=== PATIENT | female | born 1965 | race Caucasian/White ===

== ENCOUNTER 2016-08-11 00:52 | Emergency (ER) | payer MEDICARE, MEDICAID ==
[~2016-08-11] VITALS: Ht 160 cm; Wt 61.4 kg
[2016-08-11 00:53] VITALS: BP 126/78
[2016-08-11] MEDS ORDERED: LORazepam 1MG TABLET ONE (01:21)
[2016-08-11] MEDS ORDERED: LORazepam 1MG TABLET PO ONE (01:30)
== END 2016-08-11 01:50 | disposition home or self-care (01) ==
LOC: ED 01:44
DX: F20.3 Undifferentiated schizophrenia (principal); F15.10 Other stimulant abuse, uncomplicated; F31.9 Bipolar disorder, unspecified
CPT/HCPCS: 99284

== ENCOUNTER 2016-08-12 20:13 | Emergency (ER) | payer MEDICARE, MEDICAID ==
[~2016-08-12] VITALS: Ht 160 cm; Wt 62.8 kg
[2016-08-12 20:14] VITALS: BP 146/90
== END 2016-08-12 20:44 | disposition left against medical advice (07) ==
LOC: ED 20:38
DX: F29 Unspecified psychosis not due to a substance or known physiological condition (principal); Z53.21 Procedure and treatment not carried out due to patient leaving prior to being seen by health care provider

== ENCOUNTER 2016-08-25 14:27 | Emergency (ER) | payer MEDICARE, MEDICAID ==
[~2016-08-25] VITALS: Ht 160 cm; Wt 60.6 kg
[2016-08-25 14:34] VITALS: BP 112/78
[2016-08-25] MEDS ORDERED: OLANZAPINE 10 MG TABLET PO STA (15:13)
[2016-08-25 15:42] LABS: DAU SCREEN DISCLAIMER
[2016-08-25 15:49] LABS: BLOOD UREA NITROGEN 19 mg/dL (7-18)
[2016-08-25 15:50] LABS: ACETAMINOPHEN < 2 mcg/mL (10-30)
== END 2016-08-25 17:21 | disposition left against medical advice (07) ==
LOC: ED 15:58
DX: F28 Other psychotic disorder not due to a substance or known physiological condition (principal); F22 Delusional disorders; F20.9 Schizophrenia, unspecified
CPT/HCPCS: 36415; 80048; 80307; 80329; 82040; 85025; 99284; G0480

== ENCOUNTER 2016-08-26 12:44 | Emergency (ER) | payer MEDICARE, MEDICAID | END 2016-08-26 14:55 | disposition left against medical advice (07) | LOC: ED 14:49 | DX: Z53.21 Procedure and treatment not carried out due to patient leaving prior to being seen by health care provider (principal) ==

== ENCOUNTER 2016-08-26 20:02 | Emergency (ER) | payer MEDICARE, MEDICAID ==
[~2016-08-26] VITALS: Ht 160 cm; Wt 61.6 kg
[2016-08-26 20:16] VITALS: BP 118/43
== END 2016-08-26 23:32 | disposition left against medical advice (07) ==
LOC: ED 23:26
DX: Z53.21 Procedure and treatment not carried out due to patient leaving prior to being seen by health care provider (principal)

== ENCOUNTER 2016-08-27 13:27 | Emergency (ER) | payer MEDICARE, MEDICAID ==
[~2016-08-27] VITALS: Ht 160 cm; Wt 61.0 kg
[2016-08-27 13:35] VITALS: BP 120/72
== END 2016-08-27 14:46 | disposition home or self-care (01) ==
LOC: ED 14:39
DX: F20.0 Paranoid schizophrenia (principal)
CPT/HCPCS: 99284

== ENCOUNTER 2016-08-31 20:23 | Emergency (ER) | payer MEDICARE, MEDICAID | END 2016-08-31 20:34 | disposition left against medical advice (07) | LOC: ED 20:28 ==

== ENCOUNTER 2016-09-03 16:33 | Emergency (ER) | payer MEDICARE, MEDICAID ==
[~2016-09-03] VITALS: Ht 160 cm; Wt 61.1 kg
[2016-09-03 16:36] VITALS: BP 155/97
== END 2016-09-03 17:05 | disposition left against medical advice (07) ==
LOC: ED 16:59
DX: F99 Mental disorder, not otherwise specified (principal)

== ENCOUNTER 2016-09-10 20:57 | Emergency (ER) | payer MEDICARE, MEDICAID ==
[~2016-09-10] VITALS: Ht 160 cm; Wt 60.5 kg
[2016-09-10 21:09] VITALS: BP 149/89
== END 2016-09-10 22:01 | disposition left against medical advice (07) ==
LOC: ED 21:55
DX: F29 Unspecified psychosis not due to a substance or known physiological condition (principal); Z53.21 Procedure and treatment not carried out due to patient leaving prior to being seen by health care provider

== ENCOUNTER 2016-09-14 21:02 | Emergency (ER) | payer MEDICARE, MEDICAID ==
[~2016-09-14] VITALS: Ht 160 cm; Wt 60.4 kg
[2016-09-14 21:05] VITALS: BP 141/83
== END 2016-09-14 23:12 | disposition left against medical advice (07) ==
LOC: ED 23:01
DX: R45.851 Suicidal ideations (principal); Z53.21 Procedure and treatment not carried out due to patient leaving prior to being seen by health care provider

== ENCOUNTER 2016-09-30 07:37 | Emergency (ER) | payer MEDICARE, MEDICAID | END 2016-09-30 08:01 | disposition left against medical advice (07) | LOC: ED 07:55 | DX: Z53.21 Procedure and treatment not carried out due to patient leaving prior to being seen by health care provider (principal) ==

== ENCOUNTER 2016-10-12 17:12 | Emergency (ER) | payer MEDICARE, MEDICAID ==
[~2016-10-12] VITALS: Ht 160 cm; Wt 58.6 kg
[2016-10-12 17:22] VITALS: BP 120/76
[2016-10-12 18:03] LABS: BLOOD UREA NITROGEN 26 mg/dL (7-18)
== END 2016-10-12 19:20 ==
LOC: ED 18:44
DX: R06.00 Dyspnea, unspecified (principal); R05 Cough; F17.210 Nicotine dependence, cigarettes, uncomplicated
CPT/HCPCS: 36415; 71010; 80048; 82040; 85025; 99406

== ENCOUNTER 2016-10-13 20:00 | Emergency (ER) | payer MEDICARE, MEDICAID | END 2016-10-13 20:18 | disposition left against medical advice (07) | LOC: ED 20:12 | DX: Z53.21 Procedure and treatment not carried out due to patient leaving prior to being seen by health care provider (principal) ==

== ENCOUNTER 2016-10-21 21:11 | Emergency (ER) | payer MEDICARE, MEDICAID | END 2016-10-21 21:29 | disposition left against medical advice (07) | LOC: ED 21:23 | DX: Z53.21 Procedure and treatment not carried out due to patient leaving prior to being seen by health care provider (principal) ==

== ENCOUNTER 2016-10-22 02:28 | Emergency (ER) | payer MEDICARE, MEDICAID ==
[~2016-10-22] VITALS: Ht 152.4 cm; Wt 56.4 kg
[2016-10-22 02:30] VITALS: BP 133/82
== END 2016-10-22 03:23 | disposition home or self-care (01) ==
LOC: ED 03:17
DX: F23 Brief psychotic disorder (principal); F22 Delusional disorders; F20.9 Schizophrenia, unspecified
CPT/HCPCS: 99281

== ENCOUNTER 2016-11-28 10:45 | Emergency (ER) | payer MEDICARE, MEDICAID ==
[~2016-11-28] VITALS: Ht 160 cm; Wt 57.0 kg
[2016-11-28] MEDS ORDERED: LORazepam 1MG TABLET ONE (11:27)
[2016-11-28] MEDS ORDERED: LORazepam 1MG TABLET PO ONE (11:30)
[2016-11-28 11:36] VITALS: BP 121/67
== END 2016-11-28 11:41 | disposition home or self-care (01) ==
LOC: ED 11:18
DX: F15.159 Other stimulant abuse with stimulant-induced psychotic disorder, unspecified (principal); F22 Delusional disorders; Z72.89 Other problems related to lifestyle; F20.9 Schizophrenia, unspecified; F41.1 Generalized anxiety disorder; F17.200 Nicotine dependence, unspecified, uncomplicated
CPT/HCPCS: 93005; 99284

== ENCOUNTER 2016-12-04 00:57 | Emergency (ER) | payer MEDICARE, MEDICAID ==
[~2016-12-04] VITALS: Ht 160 cm; Wt 56.1 kg
[2016-12-04 01:00] VITALS: BP 128/80
== END 2016-12-04 01:59 ==
LOC: ED 01:53
DX: Z53.21 Procedure and treatment not carried out due to patient leaving prior to being seen by health care provider (principal)

== ENCOUNTER 2016-12-04 16:02 | Emergency (ER) | payer MEDICARE, MEDICAID ==
[~2016-12-04] VITALS: Ht 160 cm; Wt 55.1 kg
[2016-12-04 16:04] VITALS: BP 151/84
== END 2016-12-04 16:41 | disposition left against medical advice (07) ==
LOC: ED 16:35
DX: Z53.21 Procedure and treatment not carried out due to patient leaving prior to being seen by health care provider (principal)

== ENCOUNTER 2016-12-04 16:54 | Emergency (ER) | payer MEDICARE, MEDICAID ==
[~2016-12-04] VITALS: Ht 160 cm; Wt 55.1 kg
[2016-12-04 16:59] VITALS: BP 151/84
== END 2016-12-04 17:23 | disposition left against medical advice (07) ==
LOC: ED 17:04
DX: R10.2 Pelvic and perineal pain (principal); Z53.21 Procedure and treatment not carried out due to patient leaving prior to being seen by health care provider

== ENCOUNTER 2016-12-06 19:09 | Emergency (ER) | payer MEDICARE, MEDICAID ==
[~2016-12-06] VITALS: Ht 160 cm; Wt 55.2 kg
[2016-12-06 19:20] VITALS: BP 142/92
[2016-12-06] MEDS ORDERED: LORazepam 1MG TABLET PO ONE (20:00)
== END 2016-12-06 20:21 | disposition left against medical advice (07) ==
LOC: ED 20:15
DX: M79.671 Pain in right foot (principal); M79.672 Pain in left foot; F20.9 Schizophrenia, unspecified
CPT/HCPCS: 99281

== ENCOUNTER 2016-12-12 01:06 | Emergency (ER) | payer MEDICARE, MEDICAID ==
[~2016-12-12] VITALS: Ht 160 cm; Wt 54.7 kg
[2016-12-12 01:07] VITALS: BP 137/89
== END 2016-12-12 02:00 | disposition left against medical advice (07) ==
LOC: ED 01:54
DX: R33.9 Retention of urine, unspecified (principal); Z53.21 Procedure and treatment not carried out due to patient leaving prior to being seen by health care provider

== ENCOUNTER 2016-12-14 19:40 | Emergency (ER) | payer MEDICARE, MEDICAID | END 2016-12-14 19:51 | disposition left against medical advice (07) | LOC: ED 19:46 | DX: Z53.21 Procedure and treatment not carried out due to patient leaving prior to being seen by health care provider (principal) ==

== ENCOUNTER 2016-12-16 16:47 | Emergency (ER) | payer MEDICARE, MEDICAID ==
[~2016-12-16] VITALS: Ht 160 cm; Wt 54.3 kg
[2016-12-16 16:57] VITALS: BP 127/81
== END 2016-12-16 19:28 | disposition home or self-care (01) ==
LOC: ED 19:23
DX: F20.9 Schizophrenia, unspecified (principal); F22 Delusional disorders; F15.10 Other stimulant abuse, uncomplicated; Z72.89 Other problems related to lifestyle; F41.1 Generalized anxiety disorder
CPT/HCPCS: 99284

== ENCOUNTER 2016-12-23 01:06 | Emergency (ER) | payer MEDICARE, MEDICAID ==
[~2016-12-23] VITALS: Ht 157.5 cm; Wt 54.7 kg
[2016-12-23 01:08] VITALS: BP 145/93
== END 2016-12-23 02:24 | disposition left against medical advice (07) ==
LOC: ED 02:22
DX: F15.959 Other stimulant use, unspecified with stimulant-induced psychotic disorder, unspecified (principal); F22 Delusional disorders
CPT/HCPCS: 99281

== ENCOUNTER 2017-01-07 12:20 | Emergency (ER) | payer MEDICARE, MEDICAID ==
[~2017-01-07] VITALS: Ht 160 cm; Wt 56.5 kg
[2017-01-07 12:21] VITALS: BP 157/137
[2017-01-07] MEDS ORDERED: LORazepam 1MG TABLET PO ONE (13:00)
[2017-01-07 13:10] LABS: HEMATOCRIT 42.2 % (34.6-47.8); HEMOGLOBIN 14.6 g/dL (11.7-16.4); WHITE BLOOD COUNT 7.2 x10^3/uL (3.4-10)
[2017-01-07 13:21] LABS: BLOOD UREA NITROGEN 20 mg/dL (7-18)
[2017-01-07 13:22] LABS: ACETAMINOPHEN < 2 mcg/mL (10-30)
== END 2017-01-07 13:31 | disposition left against medical advice (07) ==
LOC: ED 12:41
DX: F41.1 Generalized anxiety disorder (principal); F20.9 Schizophrenia, unspecified
CPT/HCPCS: 36415; 80048; 80307; 80329; 82040; 85025; 99284; G0480

== ENCOUNTER 2017-01-23 21:52 | Emergency (ER) | payer MEDICARE, MEDICAID ==
[~2017-01-23] VITALS: Ht 160 cm; Wt 56.0 kg
[2017-01-23 22:03] VITALS: BP 120/63
== END 2017-01-23 22:40 ==
LOC: ED 22:19
DX: F20.0 Paranoid schizophrenia (principal); F29 Unspecified psychosis not due to a substance or known physiological condition
CPT/HCPCS: 99284

== ENCOUNTER 2017-02-19 15:58 | Emergency (ER) | payer MEDICARE, MEDICAID ==
[~2017-02-19] VITALS: Ht 160 cm; Wt 62.4 kg
[2017-02-19 16:00] VITALS: BP 142/88
== END 2017-02-19 16:38 | disposition left against medical advice (07) ==
LOC: ED 16:30
DX: N93.9 Abnormal uterine and vaginal bleeding, unspecified (principal)
CPT/HCPCS: 99281

== ENCOUNTER 2017-03-15 15:17 | Emergency (ER) | payer MEDICARE, MEDICAID ==
[~2017-03-15] VITALS: Ht 160 cm; Wt 54.9 kg
[2017-03-15 17:26] VITALS: BP 117/66
== END 2017-03-15 17:45 | disposition home or self-care (01) ==
LOC: ED 16:40
DX: F15.159 Other stimulant abuse with stimulant-induced psychotic disorder, unspecified (principal); F22 Delusional disorders; F20.9 Schizophrenia, unspecified
CPT/HCPCS: 99284; 99406

== ENCOUNTER 2017-03-25 07:42 | Emergency (ER) | payer MEDICARE, MEDICAID ==
[~2017-03-25] VITALS: Ht 160 cm; Wt 56.3 kg
[2017-03-25 07:44] VITALS: BP 139/82
== END 2017-03-25 10:10 | disposition home or self-care (01) ==
LOC: ED 08:00
DX: H65.03 Acute serous otitis media, bilateral (principal)
CPT/HCPCS: 99282

== ENCOUNTER 2017-08-05 14:44 | Emergency (ER) | payer MEDICARE, MEDICAID ==
[~2017-08-05] VITALS: Ht 160 cm; Wt 56.3 kg
[2017-08-05 16:08] VITALS: BP 123/77
== END 2017-08-05 16:11 | disposition left against medical advice (07) ==
LOC: ED 15:30
DX: F20.0 Paranoid schizophrenia (principal); F15.10 Other stimulant abuse, uncomplicated; Z59.0 Homelessness
CPT/HCPCS: 99284

== ENCOUNTER 2017-08-19 11:07 | Emergency (ER) | payer MEDICARE, MEDICAID ==
[~2017-08-19] VITALS: Ht 160 cm; Wt 53.8 kg
[2017-08-19 11:11] VITALS: BP 145/81
== END 2017-08-19 13:17 ==
LOC: ED 13:00
DX: Z53.21 Procedure and treatment not carried out due to patient leaving prior to being seen by health care provider (principal)

== ENCOUNTER 2017-08-23 06:11 | Emergency (ER) | payer MEDICARE, MEDICAID ==
[~2017-08-23] VITALS: Ht 160 cm; Wt 54.1 kg
[2017-08-23 07:06] LABS: BASOPHILS # (AUTO) 0.04 x10^3/uL (0-0.1); BASOPHILS % (AUTO) 1 % (0-1); EOSINOPHILS # (AUTO) 0.16 x10^3/uL (0-0.4); EOSINOPHILS % (AUTO) 3 % (1-7); LYMPHOCYTES # (AUTO) 1.31 x10^3/uL (1-3.4); LYMPHOCYTES % (AUTO) 25 % (22-44); MD NO; MEAN CORPUSCULAR HEMOGLOBIN 30.2 pg (27.0-34.8); MEAN CORPUSCULAR HGB CONC 33.9 g/dL (32.4-35.8); MEAN PLATELET VOLUME 8.6 fL (7.4-10.4); MONOCYTES # (AUTO) 0.34 x10^3/uL (0.2-0.8); MONOCYTES % (AUTO) 7 % (2-9); NEUTROPHILS # (AUTO) 3.46 x10^3/uL (1.8-6.8); NEUTROPHILS % (AUTO) 65 % (42-75); PLATELET COUNT 186 x10^3/uL (130-400); RED BLOOD COUNT 4.32 x10^6/uL (3.82-5.3); RED CELL DISTRIBUTION WIDTH 13.5 % (9.6-15.2)
[2017-08-23 07:17] LABS: ALBUMIN 3.1 g/dL (3.4-5.0); ANION GAP 7 mmol/L (5-15); CALCIUM 7.7 mg/dL (8.5-10.1); CHLORIDE 109 mmol/L (98-107); CREATININE 0.78 mg/dL (0.55-1.02); SALICYLATE LEVEL 3.7 mg/dL (2.8-20.0)
[2017-08-23 07:24] LABS: ACETAMINOPHEN < 2 mcg/mL (10-30)
[2017-08-23 09:12] LABS: AMPHETAMINE SCREEN, URINE Negative (Negative); BARBITURATE SCREEN, URINE Negative (Negative); BENZODIAZEPINE SCREEN, URINE Negative (Negative); CANNABINOID SCREEN, URINE Negative (Negative); COCAINE SCREEN, URINE Negative (Negative); METHADONE SCREEN, URINE Negative (Negative); OPIATE SCREEN, URINE Negative (Negative)
[2017-08-23 09:34] VITALS: BP 100/54
[2017-08-23] MEDS ORDERED: OLANZAPINE 5 MG TABLET PO ONE (11:37)
[2017-08-23] MEDS ORDERED: OLANZAPINE 5 MG TABLET ONE (11:42)
== END 2017-08-23 12:07 | disposition left against medical advice (07) ==
LOC: ED 07:40 → UNDOADMOB 11:38 → EDIP 11:38 → ED 12:07
DX: F20.9 Schizophrenia, unspecified (principal); F41.1 Generalized anxiety disorder; Z79.899 Other long term (current) drug therapy
CPT/HCPCS: 36415; 80048; 80307; 80329; 82040; 84703; 85025; 99284; G0480

== ENCOUNTER 2017-09-01 23:16 | Emergency (ER) | payer MEDICARE, MEDICAID ==
[~2017-09-01] VITALS: Ht 160 cm; Wt 53.0 kg
[2017-09-02] MEDS ORDERED: IBUPROFEN 200 MG TABLET PO ONE
[2017-09-02] MEDS ORDERED: IBUPROFEN 200 MG TABLET ONE (00:21)
[2017-09-02 00:24] VITALS: BP 122/92
== END 2017-09-02 00:42 | disposition home or self-care (01) ==
LOC: ED 23:59
DX: S00.83XA Contusion of other part of head, initial encounter (principal); F41.9 Anxiety disorder, unspecified; F20.9 Schizophrenia, unspecified; Z59.0 Homelessness; V19.9XXA Pedal cyclist (driver) (passenger) injured in unspecified traffic accident, initial encounter; Y93.89 Activity, other specified; Y92.89 Other specified places as the place of occurrence of the external cause; Y99.8 Other external cause status
CPT/HCPCS: 99282

== ENCOUNTER 2017-09-05 12:21 | Emergency (ER) | payer MEDICARE, MEDICAID ==
[~2017-09-05] VITALS: Ht 160 cm; Wt 55.9 kg
[2017-09-05 12:23] VITALS: BP 104/57
== END 2017-09-05 14:28 | disposition home or self-care (01) ==
LOC: ED 13:15
DX: S00.83XA Contusion of other part of head, initial encounter (principal); V19.9XXA Pedal cyclist (driver) (passenger) injured in unspecified traffic accident, initial encounter; Y93.89 Activity, other specified; Y92.410 Unspecified street and highway as the place of occurrence of the external cause; Y99.8 Other external cause status
CPT/HCPCS: 70100; 99284

== ENCOUNTER 2017-09-08 15:20 | Emergency (ER) | payer MEDICARE, MEDICAID ==
[~2017-09-08] VITALS: Ht 160 cm; Wt 53.1 kg
[2017-09-08 15:29] VITALS: BP 130/75
== END 2017-09-08 16:39 | disposition home or self-care (01) ==
LOC: ED 16:07
DX: L02.01 Cutaneous abscess of face (principal); F20.9 Schizophrenia, unspecified
CPT/HCPCS: 99283

== ENCOUNTER 2017-09-21 14:03 | Emergency (ER) | payer MEDICARE, MEDICAID ==
[~2017-09-21] VITALS: Ht 160 cm; Wt 55.2 kg
[2017-09-21 14:11] VITALS: BP 125/70
== END 2017-09-21 17:14 | disposition left against medical advice (07) ==
LOC: ED 17:08
DX: F29 Unspecified psychosis not due to a substance or known physiological condition (principal); F15.10 Other stimulant abuse, uncomplicated
CPT/HCPCS: 99281

== ENCOUNTER 2017-10-03 15:43 | Emergency (ER) | payer MEDICARE, MEDICAID ==
[~2017-10-03] VITALS: Ht 160 cm; Wt 53.6 kg
[2017-10-03 15:50] VITALS: BP 124/73
== END 2017-10-03 16:52 | disposition home or self-care (01) ==
LOC: ED 16:40
DX: F29 Unspecified psychosis not due to a substance or known physiological condition (principal); F20.9 Schizophrenia, unspecified
CPT/HCPCS: 99284

== ENCOUNTER 2017-10-05 18:07 | Emergency (ER) | payer MEDICARE, MEDICAID ==
[~2017-10-05] VITALS: Ht 162.6 cm; Wt 53.6 kg
[2017-10-05 18:09] VITALS: BP 118/70
== END 2017-10-05 19:28 | disposition home or self-care (01) ==
LOC: ED 18:18
DX: F20.0 Paranoid schizophrenia (principal); Z72.9 Problem related to lifestyle, unspecified
CPT/HCPCS: 82962; 99284

== ENCOUNTER 2017-10-06 09:08 | Emergency (ER) | payer MEDICARE, MEDICAID | END 2017-10-06 09:14 | disposition left against medical advice (07) | LOC: ED 09:08 | DX: Z53.21 Procedure and treatment not carried out due to patient leaving prior to being seen by health care provider (principal) ==

== ENCOUNTER 2017-10-27 15:50 | Emergency (ER) | payer MEDICARE, MEDICAID ==
[~2017-10-27] VITALS: Ht 160 cm; Wt 53.1 kg
[2017-10-27 15:55] VITALS: BP 140/79
[2017-10-27 16:48] LABS: BASOPHILS # (AUTO) 0.01 x10^3/uL (0-0.1); BASOPHILS % (AUTO) 0 % (0-1); EOSINOPHILS # (AUTO) 0.17 x10^3/uL (0-0.4); EOSINOPHILS % (AUTO) 3 % (1-7); LYMPHOCYTES # (AUTO) 1.57 x10^3/uL (1-3.4); LYMPHOCYTES % (AUTO) 23 % (22-44); MD NO; MEAN CORPUSCULAR HEMOGLOBIN 29.9 pg (27.0-34.8); MEAN CORPUSCULAR HGB CONC 33.5 g/dL (32.4-35.8); MEAN CORPUSCULAR VOLUME 89.4 fL (80-100); MEAN PLATELET VOLUME 8.8 fL (7.4-10.4); MONOCYTES % (AUTO) 7 % (2-9); NEUTROPHILS # (AUTO) 4.72 x10^3/uL (1.8-6.8); NEUTROPHILS % (AUTO) 68 % (42-75); PLATELET COUNT 203 x10^3/uL (130-400); RED CELL DISTRIBUTION WIDTH 13.2 % (9.6-15.2)
[2017-10-27 17:00] LABS: ALBUMIN 3.4 g/dL (3.4-5.0); ANION GAP 6 mmol/L (5-15); CALCIUM 8.4 mg/dL (8.5-10.1); CHLORIDE 110 mmol/L (98-107)
== END 2017-10-27 18:09 | disposition left against medical advice (07) ==
LOC: ED 16:10
DX: F20.0 Paranoid schizophrenia (principal); Z72.9 Problem related to lifestyle, unspecified; F41.1 Generalized anxiety disorder
CPT/HCPCS: 36415; 80048; 82040; 84703; 85025; 99284

== ENCOUNTER 2017-11-04 12:09 | Emergency (ER) | payer MEDICARE, MEDICAID | END 2017-11-04 13:15 | disposition left against medical advice (07) | LOC: ED 13:09 | DX: F29 Unspecified psychosis not due to a substance or known physiological condition (principal); Z53.21 Procedure and treatment not carried out due to patient leaving prior to being seen by health care provider ==

== ENCOUNTER 2017-11-04 20:40 | Emergency (ER) | payer MEDICARE, MEDICAID ==
[~2017-11-04] VITALS: Ht 160 cm; Wt 54.4 kg
[2017-11-04 20:45] VITALS: BP 133/80
== END 2017-11-04 21:35 | disposition home or self-care (01) ==
LOC: ED 21:00
DX: F15.150 Other stimulant abuse with stimulant-induced psychotic disorder with delusions (principal); F23 Brief psychotic disorder; F17.200 Nicotine dependence, unspecified, uncomplicated; F41.1 Generalized anxiety disorder
CPT/HCPCS: 99284

== ENCOUNTER 2017-11-29 20:35 | Emergency (ER) | payer MEDICARE, MEDICAID ==
[~2017-11-29] VITALS: Ht 160 cm; Wt 50.0 kg
[2017-11-29 20:43] VITALS: BP 135/92
== END 2017-11-29 21:12 | disposition left against medical advice (07) ==
LOC: ED 21:10
DX: F23 Brief psychotic disorder (principal); F22 Delusional disorders; Z91.14 Patient's other noncompliance with medication regimen
CPT/HCPCS: 99284

== ENCOUNTER 2017-11-30 06:31 | Emergency (ER) | payer MEDICARE, MEDICAID ==
[~2017-11-30] VITALS: Ht 160 cm; Wt 50.0 kg
[2017-11-30 06:32] VITALS: BP 153/88
== END 2017-11-30 07:13 | disposition home or self-care (01) ==
LOC: ED 06:38
DX: F15.950 Other stimulant use, unspecified with stimulant-induced psychotic disorder with delusions (principal); F20.0 Paranoid schizophrenia; Z59.0 Homelessness; Z91.14 Patient's other noncompliance with medication regimen; Z90.89 Acquired absence of other organs
CPT/HCPCS: 99284

== ENCOUNTER 2018-03-12 20:50 | Emergency (ER) | payer MEDICARE, MEDICAID ==
[~2018-03-12] VITALS: Ht 160 cm; Wt 59.3 kg
[2018-03-12 20:52] VITALS: BP 147/80
== END 2018-03-12 21:45 | disposition home or self-care (01) ==
LOC: ED 21:13
DX: F20.0 Paranoid schizophrenia (principal); F41.1 Generalized anxiety disorder; Z90.49 Acquired absence of other specified parts of digestive tract
CPT/HCPCS: 99284

== ENCOUNTER 2018-05-02 08:32 | Emergency (ER) | payer MEDICARE, MEDICAID ==
[~2018-05-02] VITALS: Ht 160 cm; Wt 57.0 kg
[2018-05-02 08:35] VITALS: BP 142/111
--- NOTE | 2018-05-02 09:08 | NUR ---
MARKETING PROGRAM MANAGER: PT NOT IN LOBBY AT THIS TIME
--- NOTE | 2018-05-02 09:18 | NUR ---
COMPOSITION PROFESSOR: PT NOT IN LOBBY AT THIS TIME
--- NOTE | 2018-05-02 09:28 | NUR ---
ASSOCIATE PROFESSOR OF MEDICINE: PT NOT IN LOBBY AT THIS TIME
== END 2018-05-02 09:33 | disposition left against medical advice (07) ==
LOC: ED 09:27
DX: F29 Unspecified psychosis not due to a substance or known physiological condition (principal); Z53.21 Procedure and treatment not carried out due to patient leaving prior to being seen by health care provider

== ENCOUNTER 2018-05-08 06:06 | Emergency (ER) | payer MEDICARE, MEDICAID ==
[~2018-05-08] VITALS: Ht 160 cm; Wt 59.1 kg
[2018-05-08 06:08] VITALS: BP 156/98
--- NOTE | 2018-05-08 06:24 | NUR ---
PT HERE BECAUSE SHE THINKS SHE IS BEING INJECTED WITH INFECTION. PT HAS BEEN HERE MANY TIMES FOR SIMILAR COMPLAINTS. PT SAYS SHE IS NOT ON ANY MEDICATION. PT DENIES HI/SI. PT TO BE SEEN BY TELE PSYCH
[2018-05-08 06:38] LABS: BASOPHILS # (AUTO) 0.03 x10^3/uL (0-0.1); BASOPHILS % (AUTO) 0 % (0-1); EOSINOPHILS # (AUTO) 0.29 x10^3/uL (0-0.4); EOSINOPHILS % (AUTO) 4 % (1-7); LYMPHOCYTES # (AUTO) 1.63 x10^3/uL (1-3.4); LYMPHOCYTES % (AUTO) 21 % (22-44); MD NO; MEAN CORPUSCULAR HEMOGLOBIN 30.8 pg (27.0-34.8); MEAN CORPUSCULAR HGB CONC 34.4 g/dL (32.4-35.8); MEAN CORPUSCULAR VOLUME 89.6 fL (80-100); MEAN PLATELET VOLUME 8.1 fL (7.4-10.4); MONOCYTES # (AUTO) 0.46 x10^3/uL (0.2-0.8); MONOCYTES % (AUTO) 6 % (2-9); NEUTROPHILS # (AUTO) 5.28 x10^3/uL (1.8-6.8); NEUTROPHILS % (AUTO) 69 % (42-75); PLATELET COUNT 256 x10^3/uL (130-400); RED BLOOD COUNT 4.82 x10^6/uL (3.82-5.3); RED CELL DISTRIBUTION WIDTH 13.6 % (9.6-15.2)
--- NOTE | 2018-05-08 06:47 | NUR ---
PT UP TO BATHROOM FOR UA SAMPLE. PT AMBULATES WITH A STEADY GAIT.
[2018-05-08 06:50] LABS: ALBUMIN 3.9 g/dL (3.4-5.0); ANION GAP 7 mmol/L (5-15); CALCIUM 8.7 mg/dL (8.5-10.1); CHLORIDE 108 mmol/L (98-107)
[2018-05-08 06:51] LABS: SALICYLATE LEVEL 2.8 mg/dL (2.8-20.0)
[2018-05-08 06:53] LABS: ACETAMINOPHEN < 2 mcg/mL (10-30)
--- NOTE | 2018-05-08 06:53 | NUR ---
received report from Janeth. pt upright awake & calm, responds to staff, NAD, no needs at this time, call light within reach.
--- NOTE | 2018-05-08 07:15 | NUR ---
report given to SOC.
--- NOTE | 2018-05-08 07:16 | NUR ---
telepsych consult in progress.
[2018-05-08 07:18] LABS: AMPHETAMINE SCREEN, URINE Negative (Negative); BARBITURATE SCREEN, URINE Negative (Negative); BENZODIAZEPINE SCREEN, URINE Negative (Negative); CANNABINOID SCREEN, URINE Negative (Negative); COCAINE SCREEN, URINE Negative (Negative); METHADONE SCREEN, URINE Negative (Negative); OPIATE SCREEN, URINE Negative (Negative)
--- NOTE | 2018-05-08 07:25 | NUR ---
pt left after telelpsch consult but prior to ED DC- ERP aware.
== END 2018-05-08 07:27 | disposition left against medical advice (07) ==
LOC: ED 07:13
DX: F25.0 Schizoaffective disorder, bipolar type (principal); F41.1 Generalized anxiety disorder
CPT/HCPCS: 36415; 80048; 80307; 80329; 81025; 82040; 85025; 99284; G0480

== ENCOUNTER 2018-05-14 02:29 | Emergency (ER) | payer MEDICARE, MEDICAID ==
[~2018-05-14] VITALS: Ht 157.5 cm; Wt 61.0 kg
[2018-05-14 03:47] VITALS: BP 102/69
== END 2018-05-14 04:01 | disposition home or self-care (01) ==
LOC: ED 03:55
DX: F29 Unspecified psychosis not due to a substance or known physiological condition (principal); F22 Delusional disorders; F25.9 Schizoaffective disorder, unspecified
CPT/HCPCS: 99283

== ENCOUNTER 2018-07-02 09:04 | Emergency (ER) | payer MEDICARE, MEDICAID ==
[~2018-07-02] VITALS: Ht 162.6 cm; Wt 55.0 kg
[2018-07-02 09:06] VITALS: BP 132/54
--- NOTE | 2018-07-02 09:13 | NUR ---
PT AMBULATORY TO ROOM 4 W/ C/O HAVING PEOPLE THROWING UTERUSES INSIDE OF HER. WANTS 3 UTERUSES REMOVED. DENIES SI/HI. PT DENIES DRUG ABUSE. PT STANDING IN ROOM. REFUSING TO BE PLACED IN HOSPITAL GOWN AND TO REST ON GURNEY.
[2018-07-02] MEDS ORDERED: LORazepam 1MG TABLET ONE (09:20)
--- NOTE | 2018-07-02 09:24 | NUR ---
PT REFUSING ATIVAN. ERP DR. ANDRES NOTIFIED.
[2018-07-02] MEDS ORDERED: LORazepam 1MG TABLET PO ONE (09:30)
== END 2018-07-02 09:29 | disposition home or self-care (01) ==
LOC: ED 09:18
DX: F22 Delusional disorders (principal); F41.1 Generalized anxiety disorder; F20.9 Schizophrenia, unspecified; Z90.89 Acquired absence of other organs
CPT/HCPCS: 99284; 99285

== ENCOUNTER 2018-07-15 06:45 | Emergency (ER) | payer MEDICARE, MEDICAID ==
[~2018-07-15] VITALS: Ht 160 cm; Wt 53.7 kg
[2018-07-15 06:53] VITALS: BP 147/72
--- NOTE | 2018-07-15 07:01 | NUR ---
PT PRESENTED TO ED WITH RAMBLING OF WORDS. PT STATING, " THEY KEEP PUTTING PEOPLE IN MY HEAD." PT APPEARS TO BE ALTERED ON POSSIBLY METH. PT UP AMBULATORY. PT REFUSING TO STAY. PT TALKING ABOUT MOTHER AND THEN TALKING ABOUT THERESA BOBBY. PT REFUSED TO STAY. PT ESCORTED OUT BY SECURITY
== END 2018-07-15 07:05 | disposition left against medical advice (07) ==
LOC: ED 07:03
DX: Z53.21 Procedure and treatment not carried out due to patient leaving prior to being seen by health care provider (principal)